=== PATIENT | female | born 1985 | race Caucasian/White ===

== ENCOUNTER 2016-08-27 09:34 | Emergency (ER) | payer BC ==
[2016-08-27 09:42] VITALS: BP 118/84
[2016-08-27] MEDS ORDERED: Morphine 4 MG/ML Syringe IVPUSH ONE (09:42)
[2016-08-27] MEDS ORDERED: Ondansetron 4 MG/2 ML SDV IVPUSH STA (09:42)
[2016-08-27] MEDS ORDERED: Sodium Chloride 0.9% 1,000 ML IV ONE (09:42)
--- NOTE | 2016-08-27 10:00 | EDM.PDOC ---
ED HPI GI/ABDOMINAL - General Chief Complaint: Abdominal Pain Stated Complaint: abdominal pain Time Seen by Provider: 08/27/16 09:37 Source of Information: Reports: Patient History Limitations: Reports: No limitations - History of Present Illness INITIAL COMMENTS - FREE TEXT/NARRATIVE: This patent is a 30 year old female that presents to the ER. Patient reports that after she woke up this morning she was having some cramping in her pelvic region and right lower back. Patient reports this is typical with her menstrual cycle. Patient reports that she then inserted a tampon and when she did she suddenly have severe cramping pain into her pelvic area, vaginal area, right lower back, and into her rectum. Patient describes the pain as cramping, she reports her menstrual cramping x10 pain. Patient reports that she did when she was a child have severe cramping menstrual cycles. Patient reports that her last menstrual period was on the 28 of July. She reports she is normally regular. She reports G0, P0, A0. The patient reports she is having some nausea. She reprots she did have some diarrhea this morning as well. Patient denies headache, dizziness, v, d, f, cp, soa, urinary changes. Patient is fully alert and oriented and does appear to be in pain. She has her knees in a flexed position. Symptom Onset Date: 08/27/16 Timing/Duration: Reports: Hour(s): (2) Severity: moderate Associated Symptoms (-Female): Reports: back pain, groin pain, diarrhea, nausea/vomiting. Denies: chest pain, shoulder pain, constipation, bloody stools , fever/chills, loss of appetite, malaise - Related Data Allergies/ADRs: Allergies Allergy/AdvReac Type Severity Reaction Status Date / Time lanolin Allergy Other Verified 08/27/16 10:03 Home Meds: Home Meds . [No Known Home Meds] 01/16/16 [History] Past Medical History Genitourinary History: Reports: Other (see below) Other Genitourinary History: HYPOPLASTIC KIDNEY Social & Family History - Tobacco Use Smoking Status *Q: Never Smoker - Recreational Drug Use Recreational Drug Use: No ED ROS GENERAL - Review of Systems Review Of Systems: See Below Constitutional: Reports: no symptoms HEENT: Reports: No symptoms Respiratory: Reports: No Symptoms Cardiovascular: Reports: No symptoms Endocrine: Reports: no symptoms GI/Abdominal: Reports: Abdominal pain, Diarrhea, Nausea : Reports: pain (cramping menses pelvic, vaginal, right back, rectum. ) Musculoskeletal: Reports: no symptoms Skin: Reports: no symptoms Neurological: Reports: No Symptoms Psychiatric: Reports: No symptoms Hematologic/Lymphatic: Reports: no symptoms Immunologic: Reports: no symptoms ED EXAM, GI/ABD - Physical Exam Exam: See Below Exam Limited By: No limitations General Appearance: alert, WD/WN, no apparent distress Eyes: bilateral: normal appearance Ears: normal external exam, normal canal, hearing grossly normal, normal TMs Nose: normal inspection, normal mucosa, no blood Throat/Mouth: Normal inspection, Normal lips, Normal teeth, Normal gums, Normal oropharynx, Normal voice, No airway compromise Head: atraumatic, normocephalic Neck: normal inspection, full range of motion Respiratory/Chest: no respiratory distress, lungs clear, normal breath sounds, no accessory muscle use Cardiovascular: normal peripheral pulses, regular rate, rhythm, no edema, no gallop, no JVD, no murmur, no rub GI/Abdominal: normal bowel sounds, soft, tenderness (mildly diffuse. more localized to RLQ. ). No: guarding (Female) Exam: Normal external exam, Normal bimanual exam, Vaginal bleeding, Other (Ella RN in room during entire exam. ). No: Adnexal mass, Adnexal tenderness, Cervical dilatation, Cervical discharge, Cervix motion tenderness, Enlarged uterus, Products of conception, Vaginal discharge, Vaginal lesions, Vaginal tears Back Exam: normal inspection, full range of motion Extremities: normal inspection, normal range of motion, non-tender, no pedal edema, normal capillary refill Neurological: alert, oriented Psychiatric: normal affect, normal mood Skin Exam: Warm, Dry, Intact, Normal color, No rash Lymphatic: no adenopathy Course - Vital Signs Last Recorded V/S: Last Vital Signs Temp 98.3 F 08/27/16 09:37 Pulse 79 08/27/16 09:37 Resp 20 08/27/16 09:37 BP 118/84 08/27/16 09:37 Pulse Ox 100 08/27/16 09:37 - Orders/Labs/Meds Orders: Active Orders 24 hr Category Date Time Status Abdomen Pelvis w Cont [CT] Stat Exams 08/27/16 10:33 Taken Labs: Laboratory Tests 08/27/16 08/27/16 08/27/16 Range/Units 09:46 09:46 09:46 WBC 9.9 (5.0-10.0) 10^3/uL RBC 4.41 (4.00-5.50) 10^6/uL Hgb 13.6 (12.0-16.0) g/dL Hct 39.8 (37.0-47.0) % MCV 90.2 (82.0-94.0) fL MCH 30.8 (27.0-32.0) pg MCHC 34.2 (33.0-38.0) g/dL RDW Coeff of Gerson 12.0 (11.0-15.0) % Plt Count 275 (150-400) 10^3/uL MPV 9.7 fL Sodium 139 (136-145) mEq/L Potassium 4.1 (3.5-5.0) mEq/L Chloride 105 (98-106) mEq/L Carbon Dioxide 23 (21-32) mmol/L BUN 16 (7-18) mg/dL Creatinine 0.8 (0.6-1.0) mg/dL Est Cr Clr Drug Dosing 91.20 mL/min Estimated GFR (MDRD) > 60 (>=60) mL/min Glucose 110 H D (75-99) mg/dL Calcium 8.6 (8.4-10.1) mg/dL Total Bilirubin 0.7 (0.0-1.0) mg/dL AST 18 (15-37) U/L ALT 18 (12-78) U/L Alkaline Phosphatase 50 (46-116) U/L Total Protein 7.2 (6.4-8.2) g/dL Albumin 3.9 (3.4-5.0) g/dL Amylase 49 (25-115) U/L HCG, Qual Negative Urine Color (YELLOW) Urine Appearance (CLEAR) Urine pH (4.5-8.0) Ur Specific Gilbert (1.003-1.020) Urine Protein (NEGATIVE) mg/dL Urine Glucose (UA) (NEGATIVE) mg/dL Urine Ketones (NEGATIVE) mg/dL Urine Occult Blood (NEGATIVE) Urine Nitrite (NEGATIVE) Urine Bilirubin (NEGATIVE) Urine Urobilinogen (0.2-1.0) EU/dL Ur Leukocyte Esterase (NEGATIVE) Urine RBC (0-5) /HPF Urine WBC (0-5) /HPF Ur Squamous Epith Cells (NOT SEEN) /HPF Urine Bacteria (NOT SEEN) /HPF 08/27/16 Range/Units 10:17 WBC (5.0-10.0) 10^3/uL RBC (4.00-5.50) 10^6/uL Hgb (12.0-16.0) g/dL Hct (37.0-47.0) % MCV (82.0-94.0) fL MCH (27.0-32.0) pg MCHC (33.0-38.0) g/dL RDW Coeff of Gerson (11.0-15.0) % Plt Count (150-400) 10^3/uL MPV fL Sodium (136-145) mEq/L Potassium (3.5-5.0) mEq/L Chloride (98-106) mEq/L Carbon Dioxide (21-32) mmol/L BUN (7-18) mg/dL Creatinine (0.6-1.0) mg/dL Est Cr Clr Drug Dosing mL/min Estimated GFR (MDRD) (>=60) mL/min Glucose (75-99) mg/dL Calcium (8.4-10.1) mg/dL Total Bilirubin (0.0-1.0) mg/dL AST (15-37) U/L ALT (12-78) U/L Alkaline Phosphatase (46-116) U/L Total Protein (6.4-8.2) g/dL Albumin (3.4-5.0) g/dL Amylase (25-115) U/L HCG, Qual Urine Color Yellow (YELLOW) Urine Appearance Clear (CLEAR) Urine pH 7.0 (4.5-8.0) Ur Specific Gilbert 1.021 H (1.003-1.020) Urine Protein Negative (NEGATIVE) mg/dL Urine Glucose (UA) Negative (NEGATIVE) mg/dL Urine Ketones Negative (NEGATIVE) mg/dL Urine Occult Blood Negative (NEGATIVE) Urine Nitrite Negative (NEGATIVE) Urine Bilirubin Negative (NEGATIVE) Urine Urobilinogen 0.2 (0.2-1.0) EU/dL Ur Leukocyte Esterase Negative (NEGATIVE) Urine RBC Not seen (0-5) /HPF Urine WBC Not seen (0-5) /HPF Ur Squamous Epith Cells Few H (NOT SEEN) /HPF Urine Bacteria Occasional H (NOT SEEN) /HPF Meds: Medications Discontinued Medications Generic Name Dose Route Start Last Admin Trade Name Jerardo PRN Reason Stop Dose Admin Sodium Chloride 1,000 mls @ 1,000 mls/hr 08/27/16 09:42 08/27/16 09:57 Normal Saline IV 08/27/16 10:41 1,000 mls/hr .BOLUS ONE Administration Ketorolac Tromethamine 30 mg 08/27/16 11:29 08/27/16 11:35 Toradol IVPUSH 08/27/16 11:30 30 mg ONETIME ONE Administration Morphine Sulfate 4 mg 08/27/16 09:42 08/27/16 09:55 Morphine IVPUSH 08/27/16 09:43 4 mg ONETIME ONE Administration Ondansetron HCl 4 mg 08/27/16 09:42 08/27/16 09:50 Zofran IVPUSH 08/27/16 09:43 4 mg NOW STA Administration - Radiology Interpretation Free Text/Narrative:: CT abd/pelvis with contrast: Discussed with radiologist: No ovarian cysts, no free fluid in pelvis, no acute finding for pain per radiologist. - Re-Assessments/Exams Free Text/Narrative Re-Assessment/Exam: 08/27/16 11:33 I do not suspect ovarian torsion, as she had no tenderness on pelvic exam of ovaries. She is now comfortable, she said her pain has improved a lot from when initial presentation. Will give IV Toradol and discharge home. Educated with to return. Stable. Departure - Departure Time of Disposition: 11:30 Disposition: Home, Self-Care 01 Condition: good Clinical Impression: Dysmenorrhea Abdominal pain Qualifiers: Abdominal location: right lower quadrant Qualified Code(s): R10.31 - Right lower quadrant pain Instructions: Dysmenorrhea, [id number], Abdominal Pain, Adult, [id number] Referrals: Donnie Guevara PA-C [Primary Care Provider] - Forms: ED Department Discharge Additional Instructions: Followup with your primary care provider Return to the ER for worsening of condition or any emergent concerns such as increase in pain, fever. May take over the counter ibuprofen 800mg three times a day as needed for pain Increase fluids - My Orders Last 24 Hours: My Active Orders 08/27/16 10:33 Abdomen Pelvis w Cont [CT] Stat - Assessment/Plan Last 24 Hours: My Active Orders 08/27/16 10:33 Abdomen Pelvis w Cont [CT] Stat Plan: PLEASE SEE RN NOTE FOR PFSH.
[2016-08-27 10:01] LABS: CHLORIDE,CL 105 mEq/L (98-106); SODIUM,NA 139 mEq/L (136-145)
[2016-08-27] MEDS ORDERED: Ketorolac 30 MG/ML SDV IVPUSH ONE (11:29)
== END 2016-08-27 11:42 | disposition home or self-care (01) ==
LOC: CC.ED 09:34
DX: N94.6 Dysmenorrhea, unspecified (principal); R10.31 Right lower quadrant pain
CPT/HCPCS: 36415; 74177; 80053; 81001; 82150; 84703; 85027; 96361; 96374; 96375; 99284; J1885; J2270; J2405; J7030; Q9967

== ENCOUNTER 2024-01-04 14:20 | Observation (INO) | payer BC ==
[2024-01-04] MEDS: Ondansetron 4 MG/2 ML SDV IVPUSH ONE (15:17)
[2024-01-04] MEDS: Lactated Ringers 1,000 ML IV ONE (15:18)
[2024-01-04] MEDS ORDERED: Docusate Sodium 100 MG Cap PO PRN (16:47)
[2024-01-04] MEDS ORDERED: Ondansetron 4 MG Tab.DIS PO PRN (16:47)
[2024-01-04] MEDS ORDERED: Acetaminophen 325 MG Tab PO PRN (16:47)
[2024-01-04] MEDS: Lactated Ringers 1,000 ML IV SCH (17:55)
[2024-01-04] MEDS: Ondansetron 4 MG/2 ML SDV IV PRN (23:59)
[2024-01-05 07:54] LABS: BASOPHILS ABSOLUTE AUTO 0.03 10^3/uL (0.00-0.50); BASOPHILS PERCENT AUTO 0.6 % (0-1); EOSINOPHILS PERCENT AUTO 1.9 % (0-6); HEMATOCRIT 34.1 % (37.0-47.0); HEMOGLOBIN 11.5 g/dL (12.0-16.0); IMMATURE GRAN ABSOLUTE AUTO 0.02 10^3/uL (0.00-0.49); IMMATURE GRAN PERCENT AUTO 0.4 % (0.0-4.9); LYMPHOCYTES ABSOLUTE AUTO 0.66 10^3/uL (0.60-5.00); LYMPHOCYTES PERCENT AUTO 12.3 % (24-44); MEAN CORPUSCULAR HEMOGLOBIN 31.3 pg (27.0-32.0); MEAN CORPUSCULAR HGB CONC 33.7 g/dL (32.0-36.0); MEAN CORPUSCULAR VOLUME 92.9 fL (83.0-97.0); MONOCYTES ABSOLUTE AUTO 0.61 10^3/uL (0.00-1.50); MONOCYTES PERCENT AUTO 11.4 % (0-10); NEUTROPHILS ABSOLUTE AUTO 3.94 x10^3/uL (1.80-8.00); NEUTROPHILS PERCENT AUTO 73.4 % (41-71); PLATELET COUNT,PLT 195 10^3/uL (150-400); RED BLOOD CELL COUNT 3.67 x10^6/uL (4.00-5.50); WHITE BLOOD CELL COUNT,WBC 5.4 10^3/uL (4.0-11.0)
[2024-01-05] MEDS: Aspirin 81 MG Tab.EC PO SCH (07:56)
[2024-01-05 08:01] LABS: CALCIUM 8.1 mg/dL (8.4-10.1); CREATININE 0.7 mg/dL (0.6-1.0); EST CRCL DRUG DOSING (CG) 101.01 mL/min; MAGNESIUM 1.5 mg/dL (1.8-2.4)
[2024-01-05 08:33] VITALS: BP 98/62; PULSE 67
[2024-01-05] MEDS: Magnesium Sulfate/Water 2 GM in Premix Bag 1 BAG IV ONE (09:05)
== END 2024-01-05 11:30 | disposition home or self-care (01) ==
LOC: CC.ACU 14:20 → CC.MS 16:45 → UNDOADMOB 16:45 → CC.MS 16:47
PROVIDERS: ADMIT Nurse Practitioner; ATTEND Nurse Practitioner
DX: O21.9 Vomiting of pregnancy, unspecified (principal); Z3A.23 23 weeks gestation of pregnancy; Z88.8 Allergy status to other drugs, medicaments and biological substances
CPT/HCPCS: 36415; 80048; 83735; 85025; 96361; 96374; 96375; A9270-GY; G0378; J2405; J3475; J7120

== ENCOUNTER 2024-05-25 07:37 | Emergency (ER) | payer BC ==
[2024-05-25 07:59] VITALS: BP 116/72; PULSE 78
[2024-05-25 08:11] LABS: BASOPHILS ABSOLUTE AUTO 0.06 10^3/uL (0.00-0.50); BASOPHILS PERCENT AUTO 0.5 % (0-1); EOSINOPHILS ABSOLUTE AUTO 0.18 10^3/uL (0.00-1.50); EOSINOPHILS PERCENT AUTO 1.4 % (0-6); HEMATOCRIT 44.1 % (37.0-47.0); HEMOGLOBIN 14.8 g/dL (12.0-16.0); IMMATURE GRAN ABSOLUTE AUTO 0.02 10^3/uL (0.00-0.49); IMMATURE GRAN PERCENT AUTO 0.2 % (0.0-4.9); LYMPHOCYTES ABSOLUTE AUTO 0.82 10^3/uL (0.60-5.00); LYMPHOCYTES PERCENT AUTO 6.2 % (24-44); MEAN CORPUSCULAR HEMOGLOBIN 30.2 pg (27.0-32.0); MEAN CORPUSCULAR HGB CONC 33.6 g/dL (32.0-36.0); MONOCYTES ABSOLUTE AUTO 1.04 10^3/uL (0.00-1.50); MONOCYTES PERCENT AUTO 7.8 % (0-10); NEUTROPHILS ABSOLUTE AUTO 11.16 x10^3/uL (1.80-8.00); NEUTROPHILS PERCENT AUTO 83.9 % (41-71); PLATELET COUNT,PLT 198 10^3/uL (150-400); WHITE BLOOD CELL COUNT,WBC 13.3 10^3/uL (4.0-11.0)
[2024-05-25 08:15] LABS: APPEARANCE,URINE CLEAR (CLEAR); BILIRUBIN,URINE NEGATIVE (NEGATIVE); COLOR,URINE YELLOW (YELLOW); GLUCOSE,URINE NEGATIVE (NEGATIVE); KETONES,URINE TRACE mg/dL (NEGATIVE); LEUKOCYTE ESTERASE,URINE NEGATIVE (NEGATIVE); NITRITE,URINE NEGATIVE (NEGATIVE); OCCULT BLOOD,URINE NEGATIVE (NEGATIVE); PH,URINE 6.5 (4.5-8.0); PROTEIN,URINE NEGATIVE (NEGATIVE); UROBILINOGEN,URINE 0.2 EU/dL (0.2-1.0)
[2024-05-25 08:28] LABS: ALBUMIN 3.9 g/dL (3.4-5.0); BILIRUBIN TOTAL 0.8 mg/dL (0.0-1.0); C-REACTIVE PROTEIN 4.74 mg/dL (<=0.50); CALCIUM 9.3 mg/dL (8.4-10.1); CREATININE 0.9 mg/dL (0.6-1.0); EST CRCL DRUG DOSING (CG) 75.52 mL/min; POTASSIUM,K 4.1 mEq/L (3.5-5.0); PROTEIN TOTAL,TP 7.7 g/dL (6.4-8.2)
[2024-05-25] MEDS: Take Home: Cephalexin 500 MG Cap, 6 Cap Pack PO ONE (08:46)
[2024-05-25] MEDS: Take Home: Ondansetron 4 MG Tab.DIS, 2 Tab Pack PO ONE (08:53)
== END 2024-05-25 09:00 | disposition home or self-care (01) ==
LOC: CC.ED 07:37
DX: D72.829 Elevated white blood cell count, unspecified (principal); N61.0 Mastitis without abscess; Z88.8 Allergy status to other drugs, medicaments and biological substances; Z79.899 Other long term (current) drug therapy
CPT/HCPCS: 36415; 80053; 81003; 83605; 85025; 86140; 87040; 87428-QW; 99283; 99284; A9270-GY